=== PATIENT | female | born 1965 | race Hispanic/Latino ===

== ENCOUNTER 2016-09-19 06:05 | Day surgery (SDC) | payer OTHER ==
[2016-09-19] VITALS (9 sets, daily range): BP systolic 120–138; BP diastolic 62–77; PULSE 82–103; RESP 15–18; O2SAT 98–100
[~2016-09-19] VITALS: Ht 149.9 cm; Wt 72.3 kg
[~2016-09-19 06:05] MED LIST: AMPH25CA3 PO; CeFAZolin Inj 2 GM in IV Premix 1 EACH IV ONE; NAPR500T PO
[2016-09-19] MEDS ORDERED: Ondansetron 2 mg/mL 2 mL Inj ONE (06:06)
[2016-09-19] MEDS ORDERED: Dexamethasone 4 mg/mL Inj ONE (06:06)
[2016-09-19] MEDS ORDERED: fentaNYL-PF 50 mCg/mL 2 mL Inj ONE (06:06)
[2016-09-19] MEDS ORDERED: Propofol 10,000 mCg/mL 20 mL Inj ONE (06:06)
[2016-09-19] MEDS: Lactated Ringer's 1,000 ML IV SCH ×2 (06:38→07:50)
[2016-09-19] MEDS ORDERED: Lactated Ringer's 1,000 ML IV SCH (07:29)
[2016-09-19] MEDS ORDERED: Lactated Ringer's 500 ML IV PRN (07:29)
--- NOTE | 2016-09-19 07:29 | PCM.HPANE ---
Patient Data Surgeon Admitting Provider: Attending Provider:Edwin Vargas MD Primary Care Physician:Saeed Courtney DO Other Provider:Gini Payneingham Anesthesia Reason for Visit Left Chest Wall Mass Ht/WT & BMI Height (Feet): 4 Height (Inches): 11 Weight (Kilograms): 72.3 Body Mass Index 32.00 Allergies Coded Allergies: oxycodone (Unverified Allergy, Severe, JITTERY/SWEATY, 09/19/16) meperidine HCl (Verified Allergy, Intermediate, Nausea,Vomiting, 01/17/12) codeine (Verified Allergy, Mild, Nausea,Vomiting, 01/17/12) Past Anesthesia History Anesthesia History: Positive for:: Anesthesia Reactions (severe nausea), Denies:: Fam Anesthesia Reaction, Fam Malignant Hypertherm, Malignant Hyperthermia Diabetes History Hx Diabetes?: No MRSA MRSA: No Medications Hypertension Medication: No Home Meds Incl Beta Damaris: No Reported Medications Naproxen (Naprosyn)500 Mg [id number] Mg PO BID PRN For Pain Ref 0 09/18/16 Dextroamphetamine/Amphetamine ER (Adderall XR)25 Mg [id number] Mg PO DAILY Ref 0 09/18/16 Discontinued Reported Medications Nortriptyline-Expunged Drug, Do Not Renew! 25 Mg Capsule 12/30/07 [imitrex] INJ No Conflict Check 12/30/07 History HEENT History: Positive for:: Glaucoma (suspected- being monitored) TMJ (Hx of jaw locking) Hx of Heart Problems?: No Cardiovascular History: Denies:: Hypertension Hx of Respiratory Problem?: No Respiratory History: Positive for:: Dyspnea (being over weight) Denies:: Asthma COPD Emphysema Oxygen Administration Use of C-PAP Machine Hx Neurologic Problems?: Yes Neurological History: Positive for:: Headaches (JAMISON are less often) Denies:: CVA Multiple Sclerosis Parkinson's Disease Seizures TIA Hx of GI Problems?: Yes Gastrointestinal History: Positive for:: Gall Bladder Disease (removed) Hx of Problems?: No Genitourinary History: Denies:: Kidney Stones Urinary Tract Infection Female Hx: Denies:: Currently (HX HYSTERECTOMY) Problems with Breasts? Skin History: Positive for:: History Skin Disorders? 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) Hx Musculoskeletal Problems?: Yes Musculoskeletal History: Positive for:: Back Injury (injured 23 yrs ago) Denies:: Musculoskeletal Trauma Psycho Social History: Positive for:: Anxiety Hx Surgeries?: Yes (hyst,gallbladder, appy, cyxt on tail bone, c sections) Hx Any Other Health Problems?: No Other History: Denies:: Cancer History Blood Transfusions: Positive for:: Blood Transfusions (ectopic '86) Denies:: Blood Transfuse Reaction Hx Diabetes: No Hx Alcohol Use: NoHx Substance Use: NoHave You Smoked inLast 12 mo: No Stop/Bang S-Snoring: Do You Snore Loudly: Yes T-Tired: feel tired, fatigued: No O-Obsered: Observed not breath: Yes P-Blood Pressure: treated: No B- Body Mass Index > 35 kg/m2: No A- Age over 50: Yes N- Neck Large Circumference: No G- Gender Male: No LÓPEZ Total Score: 3 LÓPEZ Risk Assessment: High Risk, =/>3 Yes Risk Assessment Category Category 1A: Patient has history of documented sleep apnea, and HAS NOT received any narcotic, sedative or anesthesia administration during this stay. Category 1B: Patient has history of documented sleep apnea, and HAS received any narcotic , sedative or anesthesia administration during this stay Category 2: Patient has SUSPECTED Obstructive Sleep Apnea, and HAS received any narcotic , sedative or anesthesia administration during this stay. Category 3: Patient has SUSPECTED Obstructive Sleep Apnea and HAS NOT received narcotic, sedative or anesthesia administration during this stay. Category 4: Outpatient in Procedural Areas with known sleep apnea or who screen positive for High Risk via the STOP/BANG questionnaire. Exam Exam Vital Signs Vital Signs Date Time Temp Pulse Resp B/P Pulse Ox O2 Delivery O2 Flow Rate FiO2 09/19/16 06:26 36.7 90 18 133/75 98 Room Air General Appearance: Alert, Oriented X3, Cooperative, No Acute Distress HEENT/AIRWAY: MP 2 Lungs: Clear to Auscultation, Normal Air Movement Heart: Exam Unremarkable, Regular Rate/Rhythm, No Murmurs/Rubs/Gallops Meds/Labs/Diagnostics Admission Meds Current Medications Lactated Ringer's (Lr) 1,000 ml @ 120 mls/hr [id number] IV Last administered on t 06:38; Start 09/19/16 at 05:00; Stop 09/19/16 at 13:19 Plan Impression Patient chart reviewed, patient interviewed and anesthestic plan with risks, benefits, and alternatives discussed, and informed consent obtained. NPO Status: 09/18/16 1800 ASA Physical Status: ASA2 Mod Systemic Disease Anesthetic Plan: GA Bene/Risks/Altern/Consents: Yes HP Complete Prior to Induction: Yes Jose Alfredo Haque MD Sep 19, 2016 07:11
[2016-09-19] MEDS ORDERED: Ondansetron 2 mg/mL 2 mL Inj IVPUSH PRN (07:30)
[2016-09-19] MEDS ORDERED: MetoCLOpramide 5 mg/mL 2 mL Inj IVPUSH PRN (07:30)
[2016-09-19] MEDS ORDERED: EPHEDrine Sulfate 50 mg/mL Inj IVPUSH PRN (07:30)
[2016-09-19] MEDS ORDERED: Atropine 0.4 mg/mL Inj IVPUSH PRN (07:30)
[2016-09-19] MEDS ORDERED: fentaNYL-PF 50 mCg/mL 2 mL Inj IVPUSH PRN (07:30)
[2016-09-19] MEDS ORDERED: HYDROmorphone 1 mg/mL Inj IVPUSH PRN (07:30)
[2016-09-19] MEDS ORDERED: Phenylephrine 10,000 mCg/mL Inj IVPUSH PRN (07:30)
[2016-09-19] MEDS ORDERED: Labetalol 5 mg/mL 4 mL Inj IV PRN (07:30)
[2016-09-19] MEDS ORDERED: Bupivacaine 0.5%/EPI 50 mL Inj INFILTRATE ONE (07:45)
[2016-09-19] MEDS ORDERED: HYDROcodone-APAP 5-325 mg Tablet PO PRN (08:40)
--- NOTE | 2016-09-19 08:43 | PCM.DISURG ---
Surgical Discharge Instruction Date of Service Sep 19, 2016 Dates of Hospitalization Date of Hospital Admission Providers Admitting Physician: Primary Care Physician: Saeed Courtney DO Attending Physician: Edwin Vargas MD Discharge Diagnosis Discharge Diagnosis Left chest wall mass Diet Discharge Diet: No restrictions Activity Discharge Activity-General: Other (no lifting greater than 15 pounds with the left arm for one week, then no restrictions after that point) Dressing and Incisional Care Dressing Care: Allow Steri Stripes to fall off, Remove outer dressing after 24 hrs Hygiene: May shower after (24 hours) Follow Up Plan Follow Up Plan In the general surgery [place] postoperative clinic in 2 weeks for a wound check. You will get a phone call with pathology results are available. Call your provider for: Fever (over 101.5), Discharge @ incision, pus discharge Edwin Vargas MD Sep 19, 2016 08:43
--- NOTE | 2016-09-19 08:47 | PCM.SURGOP ---
Surgical Operative Report Date of Service: Sep 19, 2016 Pre Operative Diagnosis Left chest wall mass Post Operative Diagnosis Same, likely lipoma Procedure: Excision of left chest wall mass, submuscular Surgeon and Manufacturing Job Titles: Surgeon: Edwin Vargas MD Assistants: Jazzy Ramirez PA-C; Fran Whitfield MS3 MS3 Indication for Procedure 50-year-old woman who has had a mass on her left chest wall since May 2015. At that time, she had a CT scan of the chest which showed an exophytic fat-containing mass measuring 2.7 x 1.4 x 1.3 cm within the anterior aspect of the left serratus anterior muscle. Since that time, it has become increasingly painful, irritated by clothing. After discussion of risks and benefits, she agreed to proceed with excision. Findings: The lesion was grossly consistent with a lipoma, just deep to the serratus fascia. It measured 2.2 x 1.8 x 1.0 cm. It was not fixed to the underlying chest wall. Procedure Details After smooth induction of general anesthesia with an LMA, she was placed in the supine position with the left arm out, and was prepped and draped in wide sterile fashion. A procedural pause was performed according to the SCOAP checklist, and all were found to be in agreement. A transverse incision was made over the palpable mass. Dissection was carried down with electrocautery through the subcutaneous tissue until the left serratus anterior muscle was visualized. The serratus fascia was incised, and immediately the mass began enucleating from the surrounding soft tissue. The mass was grossly consistent with a lipoma, and once the serratus muscle had been incised, it was soft by palpation, not fixed to the underlying chest wall. It was dissected free from the surrounding soft tissues. Ex vivo, it measured 2.2 x 1.8 x 1.0 cm. It was labeled and sent for permanent pathology. Hemostasis was adequate. The deep subcutaneous tissue was closed with an interrupted 3-0 Vicryl suture, and the skin was closed with a running 4-0 Monocryl subcuticular stitch. Steri-Strips and sterile dressings were applied. At the end of the case all needle and sponge counts were correct 2. The patient was awakened from anesthesia without difficulty, and taken to the recovery room in satisfactory condition, having tolerated the procedure well. Complications There were no periprocedural complications identified. Surgical Specimen Removed: Yes Specimen sent to Pathology: Yes Surgical Specimen description: Left chest wall mass Anesthetic Plan: GA Grafts, Implants: None Output, Estimated Blood Loss: 5 Blood Administration during frausto: No Drains: None Catheters: None copies to: Saeed Courtney Joshua D MD Sep 19, 2016 08:47
--- NOTE | 2016-09-19 09:10 | PCM.ANEP1 ---
Post Anesthesia Phase 1 PACU Phase 1 Assessment Date of Service: Sep 19, 2016 Vital Signs Vital Signs Date Time Temp Pulse Resp B/P Pulse Ox O2 Delivery O2 Flow Rate FiO2 09/19/16 09:05 82 16 133/76 100 Room Air 09/19/16 09:00 36.6 89 15 138/72 100 Room Air 09/19/16 08:55 89 15 134/73 100 Room Air 09/19/16 08:50 91 15 135/77 100 Room Air 09/19/16 08:45 92 15 127/62 100 Nasal Cannula 3 09/19/16 08:40 36.4 103 17 126/69 100 Nasal Cannula 3 09/19/16 06:26 36.7 90 18 133/75 98 Room Air Anesthetic Administered: GA Level of Alertness: Awake, talking MAYA's with Equal Strength: Yes Pain: No Nausea or Vomiting: No Oxygen Delivery: Nasal Cannula Lungs: Clear to Auscultation, Normal Air Movement Jose Alfredo Haque MD Sep 19, 2016 09:10
--- NOTE | 2016-09-19 09:21 | PCM.ANEP2 ---
Post Anesthesia Evaluation ASA/CMS Post Anesthesia VS in Patient's Normal Range?: Yes Resp Stable; Airway Patent?: Yes CV Function & Hydration Stable: Yes Mental Status Recovered?: Yes Pain control Satisfactory?: Yes N/V Control Satisfactory?: Yes Jose Alfredo Haque MD Sep 19, 2016 09:21
--- NOTE | 2016-09-26 16:01 | PATH ---
SURGICAL PATHOLOGY Attending Physician:Cristopher Fleming CASE STATUS: Signed Out * Amended * PATIENT NAME: NOLVIA WHITESIDE V. PID: [id number] : 1965 DATE COLLECTED:09/19/2016 17:33 SPECIMEN: Mass, NOS CLINICAL HISTORY: LEFT CHEST WALL MASS 1). LEFT CHEST WALL MASS FINAL DIAGNOSIS: Left Chest Wall Mass, Excision: Portion of mature fibroadipose tissue associated with skeletal muscle, consistent with intramuscular lipoma (2.5 cm in greatest dimension). ICD10 D17.9 This case was reviewed and interpreted by Dr. Edel Mathias. The final diagnosis is unchanged. This amendment is issued in order for the report to cross the interface and be available in the hospital electronic medical record. GROSS DESCRIPTION: The specimen is received in one formalin filled container labeled with the patient's name, sublabeled "left chest wall mass" and consists of a 2.5 x 1.6 x 1.1 CM yellow henley portion of soft tissue. The specimen is inked blue. 3 mechanical service representative sections are submitted in one cassette. 09/19/2016 [facility] ICD-9 CODES: CPT CODES: 35739 AMENDMENT(S): Amended: 09/26/2016 by Janet Ruiz Reason:Miscellaneous The final diagnosis is unchanged. This amendment is issued in order for the report to cross the interface and be available in the hospital electronic medical record. Previous Signout Date: 09/20/2016 Electronically Signed Out Annabelle Monzon MD [facility] [address], [place] [address] Technical component performed at [facility], [address] [place] [address] [address], [place], [address]
== END 2016-09-19 23:59 | disposition home or self-care (01) ==
LOC: SAS 06:05
PROVIDERS: ATTEND Student in an Organized Health Care Education/Training Program
DX: D17.9 Benign lipomatous neoplasm, unspecified (principal); R07.89 Other chest pain; R21 Rash and other nonspecific skin eruption; R22.2 Localized swelling, mass and lump, trunk; F90.9 Attention-deficit hyperactivity disorder, unspecified type; G25.81 Restless legs syndrome; G47.33 Obstructive sleep apnea (adult) (pediatric); F41.9 Anxiety disorder, unspecified; Z90.710 Acquired absence of both cervix and uterus
CPT/HCPCS: 11403; J0690; J1100; J2405; J3010; J7120